=== PATIENT | male | born 1975 | race American Indian/Alaskan Native ===

== ENCOUNTER 2022-05-18 10:56 | Emergency (ER) | payer SELFPAY ==
[~2022-05-18] VITALS: Ht 182.8 cm; Wt 103.4 kg
[2022-05-18] MEDS ORDERED: MEDROL DOSEPAK4 MG PO (12:45)
== END 2022-05-18 12:50 | disposition home or self-care (01) ==
LOC: ED 10:56
DX: J44.1 Chronic obstructive pulmonary disease with (acute) exacerbation (principal); Z88.0 Allergy status to penicillin; Z91.030 Bee allergy status; Z91.018 Allergy to other foods